=== PATIENT | female | born 1995 | race African-American/Black ===

== ENCOUNTER 2016-12-25 19:32 | Emergency (ER) | payer SELFPAY ==
[~2016-12-25] VITALS: Ht 165.1 cm; Wt 63.6 kg
[2016-12-25] MEDS ORDERED: PRE-TAB3 PO (19:50)
[2016-12-25 22:14] LABS: BASO % 0.3 % (0.0-1.0); EOS # 0.1 K/mm3 (0.0-0.50); EOS % 2.4 % (0.0-3.0); LARGE UNSTAINED CELL # 0.2 K/mm3 (0.0-0.4); LARGE UNSTAINED CELL % 4.3 % (0.0-4.0); LYMPH # 1.5 K/mm3 (1.5-6.5); MEAN CORPUSCULAR HGB CONC 31.1 g/dl (32.0-36.5); MEAN CORPUSCULAR VOLUME 64.4 fl (80.0-96.0); MONO # 0.5 K/mm3 (0.0-0.8); MONO % 8.2 % (0.0-5.0); NEUTROPHILS # 3.1 K/mm3 (1.8-7.7); NEUTROPHILS % 56.8 % (36.0-66.0); PLATELET COUNT, AUTOMATED 157 k/mm3 (150-450); RED CELL DISTRIBUTION WIDTH 17.1 % (11.5-14.5); WHITE BLOOD COUNT 5.5 K/mm3 (4.0-10.0)
[2016-12-25 22:46] LABS: ADD MORPHOLOGY? YES
[2016-12-25 22:48] LABS: ANISOCYTOSIS 1+; HYPOCHROMASIA 1+
[2016-12-25 22:49] LABS: MICROCYTOSIS 3+
[2016-12-26 00:25] VITALS: BP 118/64
--- NOTE | 2016-12-26 01:50 | REPUSA ---
CLINICAL HISTORY: Vaginal bleeding. TECHNIQUE: Transabdominal and endovaginal ultrasound of the pelvis was performed. FINDINGS: Single, live intrauterine gestation. Gestational sac measures 1.7 cm. This corresponds to an estimated gestation age of 6 weeks. Enigma-rump length measures 0.8 cm. This corresponds to an estimated gestation age of 6 weeks and 5 da ys. heart rate 121 beats per minute. Moderate subchorionic hemorrhage was identified left lateral to the gestational sac measuring 2.2 cm. Right ovarian cyst measuring 1.5 cm, likely a corpus luteum mass in the maternal adnexa. IMPRESSION: Single, live intrauterine gestation. Subchorionic hemorrhage.
== END 2016-12-26 00:27 | disposition home or self-care (01) ==
LOC: M ED 19:32
DX: O20.8 Other hemorrhage in early pregnancy (principal); Z91.048 Other nonmedicinal substance allergy status; Z3A.01 Less than 8 weeks gestation of pregnancy

== ENCOUNTER 2017-06-25 13:41 | Emergency (ER) | payer OTHER, SELFPAY ==
[2017-06-25 16:02] LABS: BASO % 0.2 % (0.0-1.0); EOS # 0.1 10^3/uL (0.0-0.50); EOS % 0.7 % (0.0-3.0); HEMATOCRIT 29.2 % (36.0-47.0); HEMOGLOBIN 8.8 g/dl (12.0-16.0); IMMATURE GRANULOCYTE % 1.7 % (0-3.0); LYMPH # 1.2 10^3/uL (1.5-6.5); LYMPH % 14.5 % (24.0-44.0); MEAN CORPUSCULAR HEMOGLOBIN 18.8 pg (27.0-33.0); MEAN CORPUSCULAR HGB CONC 30.1 g/dl (32.0-36.5); MEAN CORPUSCULAR VOLUME 62.3 fl (80.0-96.0); MONO # 0.9 10^3/uL (0.0-0.8); MONO % 10.1 % (0.0-5.0); NEUTROPHILS # 6.2 10^3/uL (1.8-7.7); NEUTROPHILS % 72.8 % (36.0-66.0); RED BLOOD COUNT 4.69 10^6/uL (4.00-5.40); RED CELL DISTRIBUTION WIDTH 16.5 % (11.5-14.5); WHITE BLOOD COUNT 8.4 10^3/uL (4.0-10.0)
[2017-06-25 16:03] LABS: KETONE, URINE AUTO RFX NEGATIVE (NEGATIVE); MUCUS, URINE RFX SMALL (NEGATIVE); NITRITE, URINE AUTO RFX NEGATIVE (NEGATIVE); RBC, URINE AUTO RFX 5 /HPF (0-3); SPECIFIC GRAVITY UR AUTO RFX 1.021 (1.002-1.035); SQUAM EPITHELIAL CELL UR AURFX 8 /HPF (0-6)
[2017-06-25 16:09] LABS: LEUKOCYTE ESTERASE UR AUTO RFX 3+ (NEGATIVE); WBC, URINE AUTO RFX 104 /HPF (0-3)
[2017-06-25 16:20] LABS: IRON (FE) 28 UG/DL (50-170); PERCENT SATURATION 4.1 % (13.2-45.0); TOTAL IRON BINDING CAPACITY 684 UG/DL (250-450)
[2017-06-25 16:21] LABS: PLATELET COUNT, AUTOMATED 84 10^3/uL (150-450)
[2017-06-25 16:22] LABS: IMMATURE PLATELET FRACTION % 11.8 % (0.0-9.6)
== END 2017-06-25 16:55 | disposition home or self-care (01) ==
LOC: M ED 13:41
DX: O99.013 Anemia complicating pregnancy, third trimester (principal); O23.43 Unspecified infection of urinary tract in pregnancy, third trimester; R31.9 Hematuria, unspecified; O26.813 Pregnancy related exhaustion and fatigue, third trimester; Z3A.33 33 weeks gestation of pregnancy; Z88.8 Allergy status to other drugs, medicaments and biological substances
CPT/HCPCS: 93005

== ENCOUNTER → 2017-09-13 | Outpatient (REF) | payer OTHER ==
[2017-09-13 19:27] LABS: FERRITIN 5 NG/ML (8-252); IRON (FE) 28 UG/DL (50-170); PERCENT SATURATION 5.4 % (13.2-45.0); TOTAL IRON BINDING CAPACITY 518 UG/DL (250-450)
== END ==
LOC: M LAB REF 17:45
DX: D57.3 Sickle-cell trait (principal)
CPT/HCPCS: 83550

== ENCOUNTER → 2017-12-17 | Outpatient (REF) | payer OTHER | LOC: M LAB REF 18:10 | DX: L91.0 Hypertrophic scar (principal) ==

== ENCOUNTER → 2018-05-08 | Outpatient (REF) | payer OTHER ==
[~2018-05-08] MED LIST: KEFL500C17 PO; PRE-TAB3 PO
[2018-05-08 16:30] LABS: INFLUENZA A AMPLIFICATION POSITIVE (NEGATIVE); INFLUENZA B AMPLIFICATION NEGATIVE (NEGATIVE)
== END ==
LOC: M LAB REF 08:35
PROVIDERS: ATTEND Nurse Practitioner Family
DX: J11.1 Influenza due to unidentified influenza virus with other respiratory manifestations (principal)